=== PATIENT | male | born 1990 | race Two or more races ===

== ENCOUNTER 2020-05-01 12:00 | Emergency (ER) | payer OTHER ==
[~2020-05-01] VITALS: Ht 182.9 cm; Wt 74.8 kg
[2020-05-01] MEDS ORDERED: SODIUM CHLORIDE 0.9% 1,000 ML IV ONE ×2 (12:15)
[2020-05-01] MEDS ORDERED: CLINDAMYCIN 600MG IV 50 ML IV ONE (12:15)
[2020-05-01] MEDS ORDERED: cefTRIAXone 1GM/50ML D5W 50 ML IV ONE (12:15)
[2020-05-01] MEDS ORDERED: IBUPROFEN 800 MG TAB PO ONE (13:30)
[2020-05-01 13:57] LABS: Albumin 3.6 g/dL (3.4-5.0); BUN/Creatinine Ratio 10.9; Potassium 3.7 mmol/L (3.5-5.1)
[2020-05-01 14:00] LABS: Bilirubin, Total 0.6 mg/dL (0.2-1.0); Total Protein 8.5 g/dL (6.4-8.2)
[2020-05-01 14:10] LABS: Basophils # (auto) 0 10 ^3/uL (0-0.2); Eosinophils # (auto) 0.1 10 ^3/uL (0-0.8); Eosinophils % (auto) 0.5 % (0.0-7.0); Hematocrit 41.8 % (41.0-53.0); Hemoglobin 14.3 g/dL (13.5-17.5); Lymphocytes # (auto) 1.3 10 ^3/uL (0.4-5.4); Lymphocytes % (auto) 7.5 % (10.0-50.0); Mean Corpuscular Hemoglobin 31.4 pg (28.0-32.0); Mean Corpuscular Hgb Conc. 34.3 g/dL (32.0-36.0); Mean Corpuscular Volume 91.4 fL (80.0-100.0); Monocytes # (auto) 1.7 10 ^3/uL (0-1.3); Monocytes % (auto) 9.5 % (0.0-12.0); Neutrophils # (auto) 14.7 10 ^3/uL (1.6-8.6); Neutrophils % (auto) 82.5 % (37.0-80.0); Platelet Count (auto) 249 10^3/uL (140-450); Red Blood Cells 4.57 10^6/uL (4.5-5.90); Red Cell Distribution Width 12.6 % (11.8-14.3); White Blood Cell 17.8 10^3/uL (4.4-10.8)
[2020-05-01 14:54] VITALS: BP 129/81
[2020-05-01] MEDS ORDERED: ACETAMINOPHEN 325 MG TAB PO ONE (15:30)
== END 2020-05-01 16:28 | disposition home or self-care (01) ==
LOC: ER 12:00 → EEVIPCON 12:00 → ER 16:28
DX: L03.90 Cellulitis, unspecified (principal)
CPT/HCPCS: 36415; 71045; 74176; 80053; 83605; 85025; 87040; 96361; 96365; 96368; 99285; J0696; J3490; 96367

== ENCOUNTER 2020-05-07 21:42 | Emergency (ER) | payer OTHER ==
[~2020-05-07] VITALS: Ht 182.9 cm; Wt 74.8 kg
[2020-05-08] MEDS ORDERED: KETOROLAC TROMETH 30 MG/ML 1ML VIAL IV ONE (01:15)
[2020-05-08] MEDS ORDERED: SODIUM CHLORIDE 0.9% 1,000 ML IV ONE (01:30)
[2020-05-08] MEDS ORDERED: PIPERACILLIN-TAZO 4.5GM 100 ML IV ONE ×2 (01:44→01:45)
[2020-05-08] MEDS ORDERED: VANCOMYCIN 1GM/250ML 250 ML IV ONE ×2 (01:44→01:45)
[2020-05-08] MEDS ORDERED: MORPHINE SULFATE 4 MG/ML SYR/VIAL IV ONE (01:45)
[2020-05-08 01:57] LABS: Basophils # (auto) 0 10 ^3/uL (0-0.2); Basophils % (auto) 0.2 % (0.0-2.0); Eosinophils # (auto) 0.2 10 ^3/uL (0-0.8); Eosinophils % (auto) 0.8 % (0.0-7.0); Hematocrit 39.9 % (41.0-53.0)
[2020-05-08 01:58] LABS: Hemoglobin 13.8 g/dL (13.5-17.5); Lymphocytes # (auto) 3.1 10 ^3/uL (0.4-5.4); Lymphocytes % (auto) 16.1 % (10.0-50.0); Mean Corpuscular Hemoglobin 30.9 pg (28.0-32.0); Mean Corpuscular Hgb Conc. 34.7 g/dL (32.0-36.0); Mean Corpuscular Volume 89.2 fL (80.0-100.0); Monocytes # (auto) 1.4 10 ^3/uL (0-1.3); Monocytes % (auto) 7.2 % (0.0-12.0); Neutrophils # (auto) 14.8 10 ^3/uL (1.6-8.6); Neutrophils % (auto) 75.7 % (37.0-80.0); Nucleated Red Blood Cells % 0.1 %; Platelet Count (auto) 487 10^3/uL (140-450); Red Blood Cells 4.47 10^6/uL (4.5-5.90); Red Cell Distribution Width 12.3 % (11.8-14.3); White Blood Cell 19.5 10^3/uL (4.4-10.8)
[2020-05-08 02:15] LABS: Albumin 3.6 g/dL (3.4-5.0); BUN/Creatinine Ratio 17.3; Calcium 8.6 mg/dL (8.5-10.1); Potassium 3.7 mmol/L (3.5-5.1)
[2020-05-08] MEDS ORDERED: ONDANSETRON HCL 4 MG/2 ML VIAL IV PRN (02:15)
[2020-05-08] MEDS ORDERED: ACETAMINOPHEN 325 MG TAB PO PRN (02:15)
[2020-05-08 02:17] LABS: INR 1.07 (0.9-1.15); Partial Thromboplastin Time 32.1 sec (23.0-31.2)
[2020-05-08 02:18] LABS: Bilirubin, Total 0.4 mg/dL (0.2-1.0); Total Protein 7.8 g/dL (6.4-8.2)
[2020-05-08] MEDS: MORPHINE SULFATE 4 MG/ML SYR/VIAL IV PRN ×2 (02:51→05:14)
[2020-05-08] MEDS ORDERED: IOHEXOL 300 MG/ML 100ML BOTTLE IJ ONE (03:35)
[2020-05-08] MEDS ORDERED: metroNIDAZOLE 500MG/100ML 100 ML IV ONE ×4 (04:45)
[2020-05-08 05:11] VITALS: BP 108/74
== END 2020-05-08 05:35 | disposition short-term general hospital (02) ==
LOC: ER 21:44
DX: N49.3 Fournier gangrene (principal)
CPT/HCPCS: 36415; 74177; 80053; 83605; 85025; 85610; 85730; 87040; 96361; 96365; 96367; 96368; 96375; 96376; 99285; J1885; J2270; J2405; J2543; J3370; J7030; Q9967; J3490